=== PATIENT | female | born 1970 | race Caucasian/White ===

== ENCOUNTER 2017-01-15 18:15 | Emergency (ER) | payer OTHER ==
[2017-01-15 18:20] VITALS: BP 115/82; BMI 32.2
[2017-01-15 19:59] LABS: BILIRUBIN,URINE NEGATIVE (NEGATIVE); BLOOD/HEMOGLOBIN,URINE 2+ (NEGATIVE); GLUCOSE, URINE NEGATIVE (NEGATIVE); KETONES,URINE 1+ (NEGATIVE); LEUKOCYTE ESTERASE ,URINE 1+ (NEGATIVE); NITRITES,URINE NEGATIVE (NEGATIVE); PROTEIN,URINE NEGATIVE (NEGATIVE); UROBILINOGEN,URINE NORMAL (NORMAL)
[2017-01-15 20:25] LABS: APPEARANCE,URINE SLIGHTLY HAZY (CLEAR); BACTERIA,URINE TRACE /HPF (NEGATIVE); COLOR,URINE YELLOW (YELLOW); SQUAMOUS EPITHELIAL CELL,UR FEW /HPF (NEGATIVE); TRIPLE PHOSPHATE CRYSTAL,UR MANY /HPF (NEGATIVE)
--- NOTE | 2017-01-15 20:37 | DR.GENAD ---
HPI - PCP Primary Care Physician: GAYATHRI - HPI Comment HPI Comment: SEEN AND STARTED MED FOR DIVERTICULITIS BUT PAIN GETTING WORSE, NO FEVER. NO DYSURIA. - Complaint/Symptoms Chief Complaint Doctors Comments: LLQ ABDOMINAL PAIN AND LEFT LOWER BACK PAIN TIMES ONE WEEK WITH NAUSEA. Chief Complaint:: PATIENT STATED THAT HER SIDE HAS BEEN HURTING TIMES 1 WEEK. - Nurses notes reviewed Nurses Notes Review: Yes - Source History Provided: Patient - Mode of Arrival Mode of Arrival: Ambulatory - Timing Onset of Chief Complaint: 01/08/17 Came on: Suddenly - Duration Duration: Constant Duration: Days - Severity Severity: Moderate PMH - PMH Past Medical History: Yes Past Medical History Comment: CERVIAL PROBLEMS Past Surgical History: Yes Surgical History: , LOSS PREVENTION/[employer] Surgery - Family History History of Family Medical Conditions: Yes Family Medical History: Diabetes Mellitus, [place], Hypertension - Social History Does patient currently use any type of tobacco product: No Have you used tobacco products in the last 12 months: No Type of Tobacco Use: None Does any household member use tobacco: No Alcohol Use: None Do you use any recreational Drugs:: No Lives With: Family Lives Where: Home - infectious screening In the last 2 months have you had wt loss of >10#?: NO Have you had fever, night sweats or hemotysis?: No Have you traveled outside the country in the last 6 months?: No Isolation: Standard ROS - Review of Systems Constitutional: No Symptoms Reported Eyes: No Symptoms Reported ENTM: No Symptoms Reported Respiratoy: No Symptoms Reported Cardiovascular: No Symptoms Reported Gastrointestinal/Abdominal: Abdominal Pain, Nausea Genitourinary: No Symptoms Reported Neurological: No Symptoms Reported Musculoskeletal: Back Pain, Left Integumentary: No Symptoms Reported Hematologic/Lymphatic: No Symptoms Reported Endocrine: No Symptoms Reported All Other Systems: Reviewed and Negative PE - Vital Signs Vitals: Temperature 97.6 F Pulse Rate 112 Respiratory Rate 20 Blood Pressure 115/82 O2 Sat by Pulse Oximetry 98 - General Limitations: No Limitations General Appearance: Alert - Head Head Exam: Normal Inspection - Eyes Eye exam: Normal Appearance - ENT ENT Exam: Normal External Ear Exam External Ear Exam: Normal External Inspection TM/Canal Exam: Bilateral Normal Mouth Exam: Normal Inspection Throat Exam: Normal Inspection - Neck Neck Exam: Trachea Midline - Chest Chest Inspection: Symmetric Chest Wall Rise - Respiratory Respiratory Exam: Normal Lung Sounds Bilat Respiratory Exam: Bilateral Clear to Auscultation - Cardiovascular Cardiovascular Exam: Regular Rate, Normal Rhythm, Normal Heart Sounds - Abdominal Exam Abdominal Exam: Normal Bowel Sounds, Soft, Tenderness Abdominal Tenderness: LLQ, Moderate - Extremities Extremities Exam: Normal Inspection - Back Back Exam: Normal Inspection - Neurologic Neurological Exam: Alert, Oriented X3 - Skin Skin Exam: Normal Color MDM - Differential Diagnosis Differential Diagnosis: ABDOMINAL PAIN, DIVERTICULITIS, UTI, KIDNEY STONE Course - Treatment Treatment: SEE REPORT. - Reevaluation 1st: Improved (TORADOL AND ZANTAC IN ED. ) - Education/Counseling Education/Counseling: Patient, Education Educated On: Treatment, Diagnosis, Needs for Follow Up ROR - Labs Reviewed Laboratory Results Reviewed?: Yes Result Diagrams: 01/15/17 21:07 01/15/17 21:07 Laboratory: WBC 12.9 X10^3/uL (3.6-10.0) H 01/15/17 21:07 RBC 4.89 X10^6/uL (3.5-5.4) 01/15/17 21:07 Hgb 14.8 g/dL (12.0-16.0) 01/15/17 21:07 Hct 42.5 % (36.0-47.0) 01/15/17 21:07 MCV 86.9 fL (80.0-100.0) 01/15/17 21:07 MCH 30.2 pg (27.0-34.0) 01/15/17 21:07 MCHC 34.8 g/dL (33.0-35.0) 01/15/17 21:07 RDW 13.4 % (11.6-16.5) 01/15/17 21:07 Plt Count 318 X10^3/uL (150.0-450.0) 01/15/17 21:07 MPV 7.4 fL (7.4-11.0) 01/15/17 21:07 Neut % 77.3 % (42.0-75.0) H 01/15/17 21:07 Lymph % 15.5 % (21.0-51.0) L 01/15/17 21:07 [place] % 5.7 % (0.0-13.0) 01/15/17 21:07 Eos % 0.7 % (0.9-2.9) L 01/15/17 21:07 Baso % 0.8 % (0.2-1.0) 01/15/17 21:07 Neut # 9.9 x10^3/uL (2.2-4.8) H 01/15/17 21:07 Lymph # 2.0 X10^3/uL (1.3-2.9) 01/15/17 21:07 [place] # 0.7 x10^3/uL (0.3-0.8) 01/15/17 21:07 Eos # 0.1 x10^3/uL (0.0-0.2) 01/15/17 21:07 Baso # 0.1 X10^3/uL (0.0-0.1) 01/15/17 21:07 Absolute Nucleated RBC 0.0 /100WBC 01/15/17 21:07 Sodium 140 mmol/L (136-145) 01/15/17 21:07 Corrected Sodium TNP 01/15/17 21:07 Potassium 4.5 mmol/L (3.5-5.1) 01/15/17 21:07 Chloride 104 mmol/L (98-107) 01/15/17 21:07 Carbon Dioxide 30.8 mmol/L (21-32) 01/15/17 21:07 BUN 9 mg/dL (7-18) 01/15/17 21:07 Creatinine 0.90 mg/dL (0.55-1.02) 01/15/17 21:07 Est GFR (MDRD) Af Amer > 60 (>60) 01/15/17 21:07 Est GFR (MDRD) Non-Af > 60 (>60) 01/15/17 21:07 Glucose 93 mg/dL (65-99) 01/15/17 21:07 Calcium 8.8 mg/dL (8.5-10.1) 01/15/17 21:07 Corrected Calcium TNP 01/15/17 21:07 Total Bilirubin 0.30 mg/dL (0.2-1.0) 01/15/17 21:07 AST 15 Units/L (15-37) 01/15/17 21:07 ALT 23 Units/L (12-78) 01/15/17 21:07 Alkaline Phosphatase 86 Units/L (46-116) 01/15/17 21:07 Total Protein 7.4 g/dL (6.4-8.2) 01/15/17 21:07 Albumin 3.6 g/dL (3.4-5.0) 01/15/17 21:07 Globulin 3.8 g/dL (2.5-4.5) 01/15/17 21:07 Albumin/Globulin Ratio 0.9 Ratio (1.1-2.1) L 01/15/17 21:07 HCG, Qual Negative <10 mIU/mL 01/15/17 21:07 Specimen Type Clean catch urine 01/15/17 19:43 Urine Color Yellow (YELLOW) 01/15/17 19:43 Urine Appearance Slightly hazy (CLEAR) 01/15/17 19:43 Urine pH 5.0 (5.0 - 8.0) 01/15/17 19:43 Ur Specific [place] 1.020 (1.000-1.030) 01/15/17 19:43 Urine Protein Negative (NEGATIVE) 01/15/17 19:43 Urine Glucose (UA) Negative (NEGATIVE) 01/15/17 19:43 Urine Ketones 1+ (NEGATIVE) 01/15/17 19:43 Urine Occult Blood 2+ (NEGATIVE) 01/15/17 19:43 Urine Nitrite Negative (NEGATIVE) 01/15/17 19:43 Urine Bilirubin Negative (NEGATIVE) 01/15/17 19:43 Urine Urobilinogen Normal (NORMAL) 01/15/17 19:43 Ur Leukocyte Esterase 1+ (NEGATIVE) 01/15/17 19:43 Urine RBC 3-5 /HPF (NEGATIVE) 01/15/17 19:43 Urine WBC 0-2 /HPF (NEGATIVE) 01/15/17 19:43 Ur Squamous Epith Cells Few /HPF (NEGATIVE) 01/15/17 19:43 Triple Phos Crystals Many /HPF (NEGATIVE) 01/15/17 19:43 Urine Bacteria Trace /HPF (NEGATIVE) 01/15/17 19:43 Ur Culture Indicated? No/not indicated 01/15/17 19:43 - XRAY XRAY Interpreted by: Radiologist XRAY Findings: REPORT DISCUSS WITH PATIENT. - Diagnosis Discharge Problem: Abdominal pain, Diverticulitis - Discharge Plan Disposition: 01 HOME, SELF-CARE Condition: Stable Prescriptions: Ciprofloxacin HCl [CIPRO 500 MG TAB *] 500 mg PO Q12H #20 tab Ranitidine HCl [ZANTAC TAB 150 MG *] 150 mg PO BID #60 tab Tramadol HCl 50 mg PO TID #15 tablet - Follow ups/Referrals Follow ups/Referrals: VANITA TRINH [Primary Care Provider] - 3 days - Instructions Instructions: Abdominal Pain, Adult, [id number], Diverticulitis, [id number] Additional Instructions: RETURN TO ED IF WORSE.
[2017-01-15 21:18] LABS: BASOPHILS # (AUTO) 0.1 X10^3/uL (0.0-0.1); BASOPHILS % (AUTO) 0.8 % (0.2-1.0); EOSINOPHILS # (AUTO) 0.1 x10^3/uL (0.0-0.2); EOSINOPHILS % (AUTO) 0.7 % (0.9-2.9); HEMATOCRIT 42.5 % (36.0-47.0); HEMOGLOBIN 14.8 g/dL (12.0-16.0); LYMPHOCYTES % (AUTO) 15.5 % (21.0-51.0); MEAN CORPUSCULAR HEMOGLOBIN 30.2 pg (27.0-34.0); MEAN CORPUSCULAR HGB CONC 34.8 g/dL (33.0-35.0); MEAN CORPUSCULAR VOLUME 86.9 fL (80.0-100.0); MEAN PLATELET VOLUME 7.4 fL (7.4-11.0); MONOCYTES # (AUTO) 0.7 x10^3/uL (0.3-0.8); MONOCYTES % (AUTO) 5.7 % (0.0-13.0); NEUTROPHILS # (AUTO) 9.9 x10^3/uL (2.2-4.8); NEUTROPHILS % (AUTO) 77.3 % (42.0-75.0); PLATELET COUNT 318 X10^3/uL (150.0-450.0); RED BLOOD COUNT 4.89 X10^6/uL (3.5-5.4); RED CELL DISTRIBUTION WIDTH 13.4 % (11.6-16.5); WHITE BLOOD COUNT 12.9 X10^3/uL (3.6-10.0)
--- NOTE | 2017-01-15 21:21 | CT ---
CT OF THE ABDOMEN AND PELVIS WITHOUT CONTRAST HISTORY: Left lower quadrant pain Comparison: None Technique: Multiple axial images of the abdomen and pelvis were obtained from the lung bases to the pubic symph ysis without the administration of IV contrast. Dose reduction techniques including Automated Expos ure Control (AEC) and adjustment of mA and kV were utlized. Findings: The heart is normal in size. There is no pericardial effusion. Lung bases are clear without focal co nsolidation, pleural effusion or pneumothorax. The sensitivity for focal lesion detection within the solid abdominal viscera is diminished without the use of IV contrast. Liver and spleen are normal in size, and contour. No focal lesions. No ductal dilitation. Gallbladde r is present. No calcified gallstones or gallbladder wall thickening. The pancreas is unremarkable. Adrenal glands are normal. Kidneys are normal in contour without hydronephrosis or nephrolithiasis. No bowel obstruction or inflammation. Mild diverticulosis without focal inflammation. No abnormal ap pearing mesenteric or retroperitoneal lymph nodes. No free fluid or fluid collections. The bladder is normal in appearance. Uterus and ovaries present. No free fluid or abnormal pelvic ly mph nodes. No aggressive osseous lesions. IMPRESSION: 1. No source of patient's left lower quadrant pain is identified on this examination. Reported By:
[2017-01-15 21:32] LABS: SERUM PREGNANCY TEST, QUAL NEGATIVE <10 mIU/mL
[2017-01-15 21:33] LABS: ALANINE AMINOTRANSFERASE 23 Units/L (12-78); ALBUMIN 3.6 g/dL (3.4-5.0); ALKALINE PHOSPHATASE 86 Units/L (46-116); ASPARTATE AMINO TRANSFERASE 15 Units/L (15-37); BLOOD UREA NITROGEN 9 mg/dL (7-18); CALCIUM 8.8 mg/dL (8.5-10.1); CARBON DIOXIDE 30.8 mmol/L (21-32); CHLORIDE 104 mmol/L (98-107); GLUCOSE 93 mg/dL (65-99); SODIUM 140 mmol/L (136-145); TOTAL PROTEIN 7.4 g/dL (6.4-8.2); eGFR BLACK RACES > 60 (>60); eGFR NON BLACK RACES > 60 (>60)
[2017-01-15] MEDS ORDERED: ULTRAM PO ONE (21:40)
[2017-01-15] MEDS ORDERED: ZANTAC PO ONE ×2 (21:42→21:44)
[2017-01-15] MEDS ORDERED: ULTRAM ONE (21:44)
== END 2017-01-15 21:52 | disposition home or self-care (01) ==
LOC: ER 18:32
DX: K57.92 Diverticulitis of intestine, part unspecified, without perforation or abscess without bleeding (principal); R10.32 Left lower quadrant pain
CPT/HCPCS: 36415; 74176; 80053; 81001; 84703; 85025; 99283